=== PATIENT | female | born 1990 | race Caucasian/White ===

== ENCOUNTER 2016-08-14 10:46 | Emergency (ER) | payer BC, MEDICAID ==
[2016-08-14 11:10] LABS: Hematocrit 40.5 % (37.0-47.0); Hemoglobin 13.6 gm/dL (12.5-16.0); Mean Cell Volume 84.7 fl (78-100); Mean Corpuscular Hemoglobin 28.5 pg (27-31); Mean Corpuscular Hgb Conc 33.6 g/dl (32-36); Mean Platelet Volume 10.8 fl (6.0-9.5); Neutrophil # 5.3 K/mm3 (1.3-6.0); Neutrophil % 60.7 % (42-75.0); Platelet Count 295 K/mm3 (150-450); Red Blood Count 4.78 M/mm3 (4.2-5.4); Red Cell Distribution Width 12.7 % (11.5-14.0); White Blood Count 8.8 K/mm3 (4.0-10.5)
[2016-08-14 11:22] LABS: Anion Gap 10.4 mmol/L (6.8-13.8); BUN/Creatinine Ratio 15.7 (9.0-21.6); Bilirubin, Total 0.6 mg/dL (0.0-1.1); Calcium * 9.3 mg/dL (7.9-10.9); Carbon Dioxide 29.6 mmol/L (24-32.6); Total Protein 7.9 gm/dL (6.2-8.2)
[2016-08-14 11:26] LABS: Urine Appearance Clear; Urine Bilirubin Negative (NEGATIVE); Urine Blood Negative /ul (NEGATIVE); Urine Color Yellow; Urine Ketone Negative (NEGATIVE); Urine Nitrite Negative (NEGATIVE); Urine Protein Negative (NEGATIVE); Urine RBC 0-5 /hpf (0-5); Urine Specific Gravity >=1.030 SP.GR. (1.005-1.010); Urine Urobilinogen Normal (NORMAL); Urine WBC None Seen /hpf (0-5); Urine pH 5.5 pH (5.0-7.0)
[2016-08-14 11:27] LABS: Urine Bacteria TRACE
[2016-08-14 12:49] VITALS: BP 128/84
--- NOTE | 2016-08-14 13:15 | ERNOTE ---
Abdominal HPI - Narrative Date of Service: 08/14/16 - General Chief Complaint: Abdominal Pain Time Seen by Provider: 08/14/16 11:53 Source: patient Exam Limitations: no limitations - Immun/Allergies/Home Medications Immunizatons: IMMUNIZATION HX History of Influenza Vaccine Yes Hx Pneumococcal Vaccination No Allergies/Adverse Reactions: Allergies latex Allergy (Intermediate, Verified 08/14/16 10:55) Penicillins Allergy (Intermediate, Verified 08/14/16 10:55) Home Medications: HOME MEDICATIONS Dicyclomine HCl [Bentyl] 20 mg PO TID PRN #15 tablet 08/14/16 [Last Taken Unknown] - History of Present Illness Narrative: Patient presents with migrating abdominal pain. She relaets she has been having waxing and waning abdominal pain for 1 week now. Has been having it daily. It began in her RUQ then migrated to her mid abdomen now is in her left upper abdomen. No vomiting. no diarrhea, normal bowel movement. No fever. Nothign makes this better or worse. Has not seen anyone else for this. No low abdominal pain. Does have Hx of PCOS. Has not been seen recently for this. Modarat. Cramping, waxing and waning. Sometimes pain free. Timing: intermittent Quality: moderate Activities at Onset: none Modifying Factors - (Improves): Present: other - nothing Modifying Factors - (Worsens): Present: other - nothing Associated Symptoms: Absent: chest pain, diarrhea-gross blood, fever/chills, shortness of breath Review of Systems - Review of Systems Constitutional: Absent: fever Respiratory: Absent: shortness of breath Cardiology: Absent: chest pain Gastrointestinal/Abdominal: Present: See HPI Genitourinary: Absent: dysuria Skin: Absent: rash Neurological: Absent: weakness - Patient's Past Medical History Patient History - Medical: Other Patient History - Cardiac/Respiratory: No pertinent hx Patient History - Cancer: No Hx of Cancer Patient History - Surgical Procedures: Appendectomy, Other Patient History - Other: None LMP (Calendar): 06/14/14 - Family History Mother Family History - Medical: Diabetes Type 2 Family History - Cardiac/Respiratory: No pertinent hx - Social History Living Situations: home Abuse History: No History of abuse Psych History: No pertinent hx Alcohol Use: none Drug Use: none - Immunizations Hx Pneumococcal Vaccination: No History of Influenza Vaccine: Yes Physical Exam - Physical Exam General Appearance: Present: alert, no apparent distress Eye Exam: Normal inspection: bilateral, PERRL: bilateral Ears, Nose, Throat: Present: normal ENT inspection Neck: Present: normal inspection Respiratory: Present: no respiratory distress, no accessory muscle use, lungs clear Cardiovascular/Chest: Present: regular rate, rhythm Gastrointestinal/Abdominal: Present: normal bowel sounds, nondistended, soft, other - Mild LUQ tendenress. No guarding or rebound. No peritoneal signs. Non -surgical exam. Back Exam: Present: normal range of motion. Absent: CVA tenderness (R), CVA tenderness (L) Extremity Exam: Present: normal range of motion Neurological Exam: Present: alert, no motor/sensory deficits Skin Exam: Absent: skin rash ED Progress - Results and Orders Patient's Lab Results:: I have reviewed the patient's lab results. - Vital Signs Patient's Vital Signs:: I have reviewed the patient's vital signs. Vital Signs: Vital Signs 08/14/16 08/14/16 10:51 12:49 Temperature 36.5 C 36.5 C Pulse Rate 77 72 Respiratory 12 14 Rate Blood Pressure 126/82 128/84 O2 Sat by Pulse 99 99 Oximetry - Progress/Reassessment Chief Complaint: Abdominal Pain Progress Note-Subjective: 08/14/16 13:13 Very minimal LUQ tenderness on re-check. I do not feel imaging indicated at this point. [facility] An appointemmt was made for her. I discussed warnign signs and reasons to return as well as the need for close f/u. Departure - Departure Clinical Impression: Abdominal pain Disposition: Home self-care Condition: Stable Instructions: Abdominal Pain, Adult, [id number] Additional Instructions: Rest. Fluids. Medication as directed. Follow-up tomorrow as directed for a re -check. Return for increased pain, fever, vomiting or if your condition worsens or changes in any way. Referrals: Xiao Prasad MD [Staff Physician] - 08/15/16 2:00 pm Prescriptions: Dicyclomine HCl [Bentyl] 20 mg PO TID PRN #15 tablet PRN Reason: Pain
== END 2016-08-14 13:13 | disposition home or self-care (01) ==
LOC: ER 10:46
DX: R10.12 Left upper quadrant pain (principal)